=== PATIENT | male | born 1970 | race Two or more races ===

== ENCOUNTER 2023-06-06 07:24 | Emergency (ER) | payer OTHER ==
[~2023-06-06] VITALS: Ht 185.4 cm; Wt 139.7 kg
[2023-06-06] MEDS ORDERED: AMLODIPINE-OLM1 EAC2 PO (07:34)
[2023-06-06] MEDS ORDERED: SYNTHROID75 MCG PO (07:34)
[2023-06-06] MEDS ORDERED: VAZALORE81 MG PO (07:34)
[2023-06-06] MEDS ORDERED: ZESTRIL40 M1 PO (07:34)
[2023-06-06] MEDS ORDERED: CHLORTHALIDONE25 MG PO (07:35)
[2023-06-06] MEDS ORDERED: GLUMETZA1000 MG PO (07:35)
[2023-06-06] MEDS ORDERED: GABAPENTIN300 M2 PO (07:36)
[2023-06-06] MEDS ORDERED: EZALLOR SPRINKL40 MG PO (07:36)
[2023-06-06] MEDS ORDERED: TOUJEO SOL300 UNIT/1 SQ (07:36)
[2023-06-06] MEDS ORDERED: NORFLEX100MG PO (09:32)
[2023-06-06] MEDS ORDERED: DICLOFENAC SODI75 MG PO (09:32)
== END 2023-06-06 13:25 | disposition home or self-care (01) ==
LOC: ER 07:25
DX: M54.9 Dorsalgia, unspecified (principal)